=== PATIENT | female | born 1940 | race Caucasian/White ===

== ENCOUNTER → 2016-08-24 | Outpatient (CLI) | payer MEDICARE ==
[~2016-08-24] MED LIST: CALC500T36 PO; MULT1TAB8 PO; NATU400T PO
--- NOTE | 2016-08-24 09:19 | REP ---
RIGHT UPPER QUADRANT ULTRASOUND: Real-time sonographic evaluation of the right upper quadrant performed. No gallstones are seen. Focal soft tissue is seen along the posterior inner wall of the gallbladder measuring 9 x 5 mm. This could represent focal adherent sludge versus a polyp. Followup recommended. There is no pericholecystic fluid. Otherwise no gallbladder wall thickening is seen. There is no intrahepatic or extrahepatic biliary dilatation, common bile duct measuring 3 mm in diameter. Liver and pancreas demonstrate homogeneous echotexture with no gross mass. Right kidney demonstrates no hydronephrosis or nephrolithiasis with normal size at 10.2 cm in length. There is no free fluid. IMPRESSION: Focal adherent sludge versus polyp along the inner posterior wall of the gallbladder measuring 9 x 5 mm. Otherwise unremarkable. Recommend followup ultrasound in 3-6 months to re-evaluate. Signed by Peterson Cabrera MD 08/24/2016 12:42 P
== END ==
LOC: M RAD 08:05
PROVIDERS: ATTEND Surgery
DX: K81.0 Acute cholecystitis (principal)

== ENCOUNTER → 2016-11-17 | Outpatient (CLI) | payer MEDICARE ==
--- NOTE | 2016-11-17 09:54 | REP ---
RIGHT UPPER QUADRANT ULTRASOUND: Real-time sonographic evaluation of the right upper quadrant performed. Comparison made with a prior study of 08/24/2016. Along the posterior inner wall of the gallbladder is an oval polyp measuring 8 x 3 x 8 mm essentially unchanged. Another polyp in the gallbladder measures 2 x 1 x 3 mm. No gallstones are seen. There is no gallbladder wall thickening or pericholecystic fluid. There is no intrahepatic or extrahepatic biliary dilatation, common bile duct measuring 4 mm in diameter. The liver and pancreas demonstrate homogeneous echotexture with no gross mass. Right kidney demonstrates no hydronephrosis with normal size at 10.6 cm in length. IMPRESSION: Two gallbladder polyps are seen along the posterior wall of the gallbladder, larger measuring 8 X 3 x 8 mm. This is unchanged since 08/24/2016. Recommend followup ultrasound in 6 months to ensure stability. Signed by Peterson Cabrera MD 11/17/2016 10:02 A
== END ==
LOC: M RAD 08:28
PROVIDERS: ATTEND Surgery
DX: K82.4 Cholesterolosis of gallbladder (principal)

== ENCOUNTER → 2018-09-07 | Outpatient (CLI) | payer MEDICARE ==
[~2018-09-07] MED LIST changes: +CALC12504 PO; -CALC500T36 PO
--- NOTE | 2018-09-07 12:13 | REP ---
CAROTID ULTRASOUND: Real-time ultrasound evaluation and duplex Doppler interrogation of the extracranial carotid vasculature is performed. There is mild plaquing and narrowing in both carotid bulbs extending into the internal and external carotid arteries. Luminal narrowing is less than 50%. There is no evidence of hemodynamically significant stenosis of either internal carotid artery. Normal flow velocities are seen. The vertebral arteries demonstrate normal direction of flow. RIGHT LEFT Peak systolic velocity ICA 61.5 cm/s 75 cm/s End diastolic velocity ICA 24.8 cm/s 30 cm/s Peak systolic velocity CCA 72 cm/s 105 cm/s Peak systolic velocity ECA 85.5 cm/s 93.2 cm/s ICA/CCA ratio 0.85 0.71 IMPRESSION: Bilateral luminal narrowing of the internal carotid arteries less than 50%. No evidence of hemodynamically significant stenosis. Incidental note is made of bilateral thyroid cysts and nodules. Recommend formal thyroid ultrasound to further evaluate. Electronically Signed by Peterson Cabrera MD 09/07/2018 12:06 P
== END ==
LOC: M RAD 09:47
PROVIDERS: ATTEND Physician Assistant
DX: I65.23 Occlusion and stenosis of bilateral carotid arteries (principal); E04.1 Nontoxic single thyroid nodule

== ENCOUNTER → 2018-09-14 | Outpatient (CLI) | payer MEDICARE ==
--- NOTE | 2018-09-14 11:42 | REP ---
THYROID SONOGRAPHY: HISTORY: Thyroid cysts. Findings in the thyroid are noted on the carotid sonography dated September 07, 2018. FINDINGS: Thyroid isthmus is thickened at 1.0 cm. Multinodular thyroid is observed. Right lobe dimensions are 3.6 x 1.5 x 1.7 cm. The left thyroid lobe measures 3.7 x 1.4 x 2.1 cm. There are multiple thyroid cysts, cystic nodules, and solid thyroid nodules bilaterally. None of these have suspicious features by ultrasound criteria. There are two nodules in the isthmus, one measuring 1.0 and the other 1.1 cm in greatest diameter. There is a 0.7 cm solid nodule and a 1.0 cm solid nodule in the right lobe. There are several complex smaller nodules in the right lobe. There is a complex 0.8 cm nodule in the left lobe and a complex 1.0 cm nodule in the left lobe. IMPRESSION: Multinodular thyroid. Electronically Signed by Ivan Moon MD 09/14/2018 08:00 P
== END ==
LOC: M RAD 09:38
PROVIDERS: ATTEND Physician Assistant
DX: E04.1 Nontoxic single thyroid nodule (principal)

== ENCOUNTER 2019-01-14 08:52 | Inpatient (IN) | payer MEDICARE ==
[~2019-01-14] VITALS: Ht 160 cm; Wt 62.2 kg
[~2019-01-14 08:52] MED LIST changes: -CALC12504 PO; +CALC500T61 PO
[2019-01-14] MEDS: ENOXAPARIN 40 MG/0.4 ML SYRINGE (J1650) SC SCH (09:00)
[2019-01-14] MEDS ORDERED: LISI10TA4 PO (09:01)
[2019-01-14 09:27] LABS: BASO % 0.4 % (0.0-1.0); EOS # 0.1 10^3/uL (0.0-0.50); EOS % 0.5 % (0.0-3.0); HEMATOCRIT 36.2 % (36.0-47.0); HEMOGLOBIN 12.2 g/dl (12.0-15.5); LYMPH # 0.8 10^3/uL (1.5-4.5); LYMPH % 7.7 % (24.0-44.0); MEAN CORPUSCULAR HEMOGLOBIN 33.7 pg (27.0-33.0); MEAN CORPUSCULAR HGB CONC 33.7 g/dl (32.0-36.5); MONO # 0.7 10^3/uL (0.0-0.8); MONO % 6.3 % (0.0-5.0); NEUTROPHILS # 8.9 10^3/uL (1.8-7.7); NEUTROPHILS % 84.8 % (36.0-66.0); PLATELET COUNT, AUTOMATED 243 10^3/uL (150-450); RED BLOOD COUNT 3.62 10^6/uL (4.00-5.40); WHITE BLOOD COUNT 10.4 10^3/uL (4.0-10.0)
[2019-01-14] MEDS ORDERED: ONDANSETRON 4MG/2ML VIAL (J2405) IV ONE ×2 (10:00→11:45)
[2019-01-14 11:16] LABS: ALBUMIN 3.5 GM/DL (3.2-5.2); ALT/SGPT 38 U/L (12-78); BILIRUBIN,DIRECT 0.3 MG/DL (0.0-0.2); BILIRUBIN,TOTAL 0.6 MG/DL (0.2-1.0); BLOOD UREA NITROGEN 25 MG/DL (7-18); CALCIUM LEVEL 8.7 MG/DL (8.8-10.2); CARBON DIOXIDE LEVEL 26 MEQ/L (21-32); CHLORIDE LEVEL 113 MEQ/L (98-107); CREATININE FOR GFR 0.98 MG/DL (0.55-1.30); GLOMERULAR FILTRATION RATE 58.4 (>39); GLUCOSE, FASTING 108 MG/DL (70-100); POTASSIUM SERUM 4.3 MEQ/L (3.5-5.1); SODIUM LEVEL 145 MEQ/L (136-145); TOTAL PROTEIN 6.3 GM/DL (6.4-8.2)
[2019-01-14 11:17] LABS: LIPASE 31130 U/L (73-393)
[2019-01-14 11:38] LABS: CK-MB VALUE MASS 1.6 NG/ML (<3.6); CPK CREATINE PHOSPHOKINASE 148 U/L (26-192); MB/CK RELATIVE INDEX 1.08 (< OR =4); TROPONIN I < 0.02 NG/ML (< 0.10)
[2019-01-14] MEDS ORDERED: NS 1,000 ML IV SCH (11:45)
[2019-01-14] MEDS: MORPHINE 4 MG/ML 1ML VIAL/SYRINGE (J2270) IV PRN ×2 (12:20→13:41)
[2019-01-14] MEDS ORDERED: ACET-683 PO (12:58)
[2019-01-14] MEDS ORDERED: VITA-157 PO (12:58)
--- NOTE | 2019-01-14 14:20 | REP ---
REASON: History of pancreatitis. COMPARISON: 06/13/2017. Prior examination showed a 9 mm sized polyp in the gallbladder was felt to be unchanged with an older exam of 11/17/2016. The exam was otherwise unremarkable. Today's examination again shows echogenic focus of adherence of the gallbladder wall, which is essentially unchanged. Low level echoes are also seen in the gallbladder lumen consistent with sludge formation. There are no shadowing echogenic foci. The liver is unchanged and again seen to be within normal limits. The common bile duct measures between 6 and 7 mm, which is within normal limits for the patient's age. The imaged portion of the pancreas and right kidney are unchanged and again seen to be within normal limits for the patient's age. There are some likely age-related renal atrophic changes, status quo. IMPRESSION: 1. Unchanged polyp. 2. No evidence of acute disease. 3. Small amount of sludge. Electronically Signed by Buster Ratliff DO 01/14/2019 04:46 P
[2019-01-14] MEDS ORDERED: ONDANSETRON 4MG/2ML VIAL (J2405) IV PRN (14:30)
[2019-01-14] MEDS ORDERED: MORPHINE 4 MG/ML 1ML VIAL/SYRINGE (J2270) IV PRN (14:30)
[2019-01-14] MEDS ORDERED: ACETAMINOPHEN TAB 650MG DOSE (2X325MG) PO PRN (14:30)
[2019-01-14] MEDS ORDERED: NORCO, ANEXSIA 5/325MG TABLET (HYDROcodone/ACETAMINOPHEN) PO PRN (14:30)
[2019-01-14 14:44] VITALS: BP 111/57
[2019-01-14 14:44] LABS: TRIGLYCERIDES LEVEL 105 MG/DL (<150)
[2019-01-14] MEDS: LR 1,000 ML IV SCH ×4 (15:40→23:45)
--- NOTE | 2019-01-14 16:28 | HPEPDOC ---
[facility] Medical History & Physical Date of Admission Jan 14, 2019 Date of Service: Jan 14, 2019 Primary Care Physician: Liza Whiting PA-C, LAC Attending Physician: SHASHI SEAY MD History and Physical CHIEF COMPLAINT: Abdominal pain, vomiting HISTORY OF PRESENT ILLNESS: Leticia Jaime is a 78-year-old female presented to the emergency room this afternoon with sudden onset epigastric abdominal pain, nausea, and vomiting. She states she felt well this morning when she got up and she was able to eat breakfast normally. However, as she continues to go about her daily routine. She began to feel nauseous with severe epigastric pain which was sharp and stabbing and rated 10/10. She reports as the pain progressed and did wrap around to her back as well. She states she was unable to continue with her normal daily tasks and decided to come in to the emergency room. She st ates that since she has been here, she has vomited 4 times. He otherwise states she feels well with no additional complaints. She states she has never had any symptoms like this before. She does state she has had a "gallbladder attack" in 2016 which resolved without incident. She did not have a cholecystectomy at that time. Since she has been in the ED, she has received morphine for her pain with good effect and Zofran for her nausea with good effect. PAST MEDICAL HISTORY: 1. Hypertension. 2. Hx of cholecystitis episode PAST SURGICAL HISTORY: 1. Appendectomy SOCIAL HISTORY: Tobacco use: Never smoker ETOH: Denies Illicit drug use: Denies IV drug use: Denies FAMILY HISTORY: Father: Dementia, recurrent pneumonia Mother: Hypertension, [place] Siblings: sister with metastatic lung [place] Children: Healthy ALLERGIES: Please see below. REVIEW OF SYSTEMS: CONSTITUTIONAL: Endorses chills. Denies fevers, night sweats, fatigue, unexpected change in weight HEENT: Denies change in vision, change in hearing, ear pain, sore throat, runny nose CARDIOVASCULAR: Denies chest pain, palpitations, shortness of breath, edema. RESPIRATORY: Denies cough, wheezing. GASTROINTESTINAL: Endorses nausea, vomiting, abdominal pain. Denies diarrhea, blood in stool, blood in vomit GENITOURINARY: Denies dysuria, urinary frequency. SKIN: Denies new rashes or lesions. MUSCULOSKELETAL: Denies new joint pain, muscle aches. NEUROLOGICAL: Denies headaches, confusion, weakness. PSYCHIATRIC: Denies change in mood HOME MEDICATIONS: Please see below. PHYSICAL EXAMINATION: VITAL SIGNS: Temperature 98.2, pulse 85, respiratory rate, 18, blood pressure, 124/58, pulse oximetry, 99 % on room air. GENERAL APPEARANCE: Alert, comfortable, lying in bed, in no acute distress. HEENT:. PERRLA, EOMI, moist mucous membranes. CARDIOVASCULAR: Regular rate and rhythm, normal S1 and S2, no murmurs, rubs or gallops. LUNGS:. Good air entry bilaterally, clear to auscultation bilaterally. ABDOMEN: Tender to light palpation in the epigastric area, tender to deep palpation in the RUQ and LUQ. Soft, nondistended, bowel sounds present, no masses or hepatosplenomegaly appreciated. MUSCULOSKELETAL: Full ROM and 5/5 strength in 4/4 extremities. EXTREMITIES: No cyanosis or edema. Pulses 2+/4 in the radial and posterior tibial arteries. NEUROLOGICAL: Alert and oriented 3 to person, place and time, cranial nerves 212 grossly intact, no focal deficits appreciated. PSYCHIATRIC:, Normal mood and affect. LABORATORY DATA: See below. IMAGING: Gallbladder U/S 01/14: Unchanged polyp, no evidence of acute disease, small amount of sludge. No CBD dilation. MICROBIOLOGY: Please see below. ASSESSMENT: 78-year-old female presented to the emergency room this afternoon with sudden onset epigastric abdominal pain, nausea, and vomiting with an elevated lipase level, suggestive of acute pancreatitis. PLAN: 1. Acute pancreatitis. Patient with epigastric abdominal pain, nausea/vomiting and elevated lipase level. Etiology currently unknown. Patient denies alcohol use. Gallbladder ultrasound negative for gallstones, this does not rule out recent passed stone. Will also check triglyceride levels. Started on IV fluid resuscitation with LR at 250 mls/hr. Patient will be kept NPO for now. When she starts to improve and feels hungry she may have clear liquids and then progress diet as tolerated. Continue IV fluids until she has good oral intake. Continue to monitor for clinical improvement. 2. Elevated liver function tests. Will trend LFTs to make sure they are coming down 3. Hypertension. Continue home lisinopril 4. DVT prophylaxis. Lovenox Disposition: Admitted to med/surg, pending clinical improvement Vital Signs Vital Signs Date Time Temp Pulse Resp B/P (MAP) Pulse Ox O2 Delivery O2 Flow Rate FiO2 01/14/19 13:51 18 01/14/19 11:22 98.2 102 98 Room Air Laboratory Data Labs 24H Laboratory Tests 2 01/14/19 09:17: Immature Granulocyte % (Auto) 0.3, White Blood Count 10.4H, Red Blood Count 3.62L, Hemoglobin 12.2, Hematocrit 36.2, Mean Corpuscular Volume 100.0H, Mean Corpuscular Hemoglobin 33.7H, Mean Corpuscular Hemoglobin Concent 33.7, Red Cell Distribution Width 11.4L, Platelet Count 243, Neutrophils (%) (Auto) 84.8H, Lymphocytes (%) (Auto) 7.7L, Monocytes (%) (Auto) 6.3H, Eosinophils (%) (Auto) 0.5, Basophils (%) (Auto) 0.4, Neutrophils # (Auto) 8.9H, Lymphocytes # (Auto) 0.8L, Monocytes # (Auto) 0.7, Eosinophils # (Auto) 0.1, Basophils # (Auto) 0.0, Nucleated Red Blood Cells % (auto) 0.0, Anion Gap 6L, Glomerular Filtration Rate 58.4, Calcium Level 8.7L, Aspartate Amino Transf (AST/SGOT) 90H, Alanine Aminotransferase (ALT/SGPT) 38, Alkaline Phosphatase 151H, Total Bilirubin 0.6, Direct Bilirubin 0.3H, Total Creatine Kinase 148, Creatine Kinase MB 1.6, Creatine Kinase MB Relative Index 1.08, Troponin I < 0.02, Total Protein 6.3L, Albumin 3.5, Albumin/Globulin Ratio 1.25, Lipase [id number] CBC/BMP Laboratory Tests 01/14/19 09:17 Red Blood Count 3.62 L, Mean Corpuscular Volume 100.0 H, Mean Corpuscular Hemoglobin 33.7 H, Mean Corpuscular Hemoglobin Concent 33.7, Red Cell Distribution Width 11.4 L, Neutrophils (%) (Auto) 84.8 H, Lymphocytes (%) (Auto) 7.7 L, Monocytes (%) (Auto) 6.3 H, Eosinophils (%) (Auto) 0.5, Basophils (%) (Auto) 0.4, Neutrophils # (Auto) 8.9 H, Lymphocytes # (Auto) 0.8 L, Monocytes # (Auto) 0.7, Eosinophils # (Auto) 0.1, Basophils # (Auto) 0.0 Home Medications Scheduled Calcium Carbonate (Calcium Carbonate) 500 Mg Tab, 500 MG PO DAILY Lisinopril (Lisinopril) 10 Mg Tablet, 10 MG PO DAILY Multivitamin (Multi-Vitamin Daily) 1 Tab Tab, 1 TAB PO DAILY Vitamin E (Dl,Tocopheryl Acet) (Vitamin E) 400 Unit Capsule, 400 UNIT PO DAILY Scheduled PRN Acetaminophen (Acetaminophen) 500 Mg Tablet, 1,000 MG PO DAILYPRN PRN for PAIN Allergies Coded Allergies: No Known Allergies (Unverified , 01/14/19) A-FIB/CHADSVASC A-FIB History Current/History of A-Fib/PAF?: No ABEBE MACIAS PGY-1 Jan 14, 2019 15:10
--- NOTE | 2019-01-14 20:41 | ECGEPIP ---
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
[2019-01-14 22:00] VITALS: BP 110/52
[2019-01-15 06:00] VITALS: BP 118/58
[2019-01-15 07:00] LABS: HEMATOCRIT 32.9 % (36.0-47.0); HEMOGLOBIN 10.7 g/dl (12.0-15.5); MEAN CORPUSCULAR HEMOGLOBIN 34.1 pg (27.0-33.0); MEAN CORPUSCULAR HGB CONC 32.5 g/dl (32.0-36.5); MEAN CORPUSCULAR VOLUME 104.8 fl (80.0-96.0); PLATELET COUNT, AUTOMATED 182 10^3/uL (150-450); RED BLOOD COUNT 3.14 10^6/uL (4.00-5.40)
[2019-01-15 07:25] LABS: ALBUMIN 2.6 GM/DL (3.2-5.2); BILIRUBIN,TOTAL 2.2 MG/DL (0.2-1.0); CALCIUM LEVEL 8.1 MG/DL (8.8-10.2); CHOLESTEROL RISK RATIO 1.714 (<5); CREATININE FOR GFR 1.07 MG/DL (0.55-1.30); GLOMERULAR FILTRATION RATE 52.8 (>39); POTASSIUM SERUM 4.3 MEQ/L (3.5-5.1); TOTAL PROTEIN 5.5 GM/DL (6.4-8.2)
[2019-01-15] MEDS: LR 1,000 ML IV SCH ×4 (07:25→21:28)
[2019-01-15] MEDS: ENOXAPARIN 40 MG/0.4 ML SYRINGE (J1650) SC SCH ×2 (09:00→10:00)
--- NOTE | 2019-01-15 09:40 | IPNPDOC ---
Date Seen The patient was seen on 01/15/19. Progress Note SUBJECTIVE: Patient is a 78-year-old female presented to the emergency room this afternoon with sudden onset epigastric abdominal pain, nausea, and vomiting with an elevated lipase level, suggestive of acute pancreatitis. Patient reports she is feeling well this morning. She states she still has some soreness in her epigastric area of her abdomen, but otherwise she denies any anisha k pain or further abdominal pain. She denies any nausea, vomiting, diarrhea. She states she does feel like she wants to try to start eating. Denies fevers, chills, night sweats, chest pain, shortness of breath, leg swelling. OBJECTIVE: PHYSICAL EXAMINATION: VITAL SIGNS: Please see below. GENERAL: Alert, comfortable, lying in bed, in no acute distress. HEENT: PERRLA, EOMI, moist mucous membranes. CARDIOVASCULAR: Regular rate and rhythm, normal S1 and S2, no murmurs, rubs or gallops. RESPIRATORY: Good air entry bilaterally, clear to auscultation bilaterally. ABDOMINAL: Tender to deep palpation in the epigastric area, otherwise nontender along the lower and mid abdomen. Soft, nondistended, bowel sounds present, no masses or hepatosplenomegaly appreciated. EXTREMITIES: No cyanosis or edema. Pulses 2+/4 in the radial and posterior tibial arteries. NEUROLOGICAL: Alert and oriented 3 to person, place and time, cranial nerves 212 grossly intact, no focal deficits appreciated. PSYCHOLOGICAL: Normal mood and affect LABORATORY DATA, IMAGING STUDIES, MICROBIOLOGY: Please see below. IMAGING: Gallbladder U/S 01/14: Unchanged polyp, no evidence of acute disease, small amount of sludge. No CBD dilation. ASSESSMENT AND PLAN: This is a 78-year-old female presented to the emergency room this afternoon with sudden onset epigastric abdominal pain, nausea, and vomiting with an elevated lipase level, suggestive of acute pancreatitis. PROBLEMS: 1. Acute pancreatitis. Patient with epigastric abdominal pain, nausea/vomiting and elevated lipase level. Etiology currently unknown. Patient denies alcohol use. Gallbladder ultrasound negative for gallstones, this does not rule out recent passed stone. Will also check triglyceride levels. It is still possible that the etiology of her pancreatitis is a recently passed gallstone. Considering her only other significant medical event was also cholecystitis, would suggest she see a general surgeon as an outpatient to consider a cholecystectomy. Started on IV fluid resuscitation with LR at 250 mls/hr and kept NPO overnight. Start clear liquid diet for now and if she tolerates this, will continue to advance her diet. Once she has good PO intake. We will discontinue the IV fluids. 2. Elevated liver function tests. Will trend LFTs to make sure they are coming down 3. Hypertension. Continue home lisinopril 4. DVT prophylaxis. Lovenox DISPOSITION: Admitted to med/surg, pending clinical improvement VS, I&O, 24H, Fishbone Vital Signs/I&O Vital Signs Date Time Temp Pulse Resp B/P (MAP) Pulse Ox O2 Delivery O2 Flow Rate FiO2 01/15/19 06:00 98.2 86 17 118/58 (78) 96 01/14/19 11:22 Room Air I&O- Last 24 Hours up to 6 AM 01/15/19 06:00 Intake Total 1400 ml Output Total 950 ml Balance 450 ml Laboratory Data 24H LABS Laboratory Tests 2 01/15/19 06:40: Nucleated Red Blood Cells % (auto) 0.0, Anion Gap 4L, Glomerular Filtration Rate 52.8, Blood Urea Nitrogen 21H, Creatinine 1.07, Sodium Level 143, Potassium Lev el 4.3, Chloride Level 112H, Carbon Dioxide Level 27, Calcium Level 8.1L, Aspartate Amino Transf (AST/SGOT) 377H, Alanine Aminotransferase (ALT/SGPT) 398H, Alkaline Phosphatase 200H, Total Bilirubin 2.2#H, Triglycerides Level 37, LDL Cholesterol 38, Total Protein 5.5L, Albumin 2.6#L, Albumin/Globulin Ratio 0.90L, Total Cholesterol 108, Non-HDL Cholesterol (LDL + VLDL) 45, Total HDL Cholesterol 63, Cholesterol/HDL Ratio 1.714 CBC/BMP Laboratory Tests 01/15/19 06:40 Red Blood Count 3.14 L, Mean Corpuscular Volume 104.8 H, Mean Corpuscular Hemoglobin 34.1 H, Mean Corpuscular Hemoglobin Concent 32.5, Red Cell Distribution Width 11.9, Calcium Level 8.1 L, Aspartate Amino Transf (AST/SGOT) 377 H, Alanine Aminotransferase (ALT/SGPT) 398 H, Alkaline Phosphatase 200 H, Total Bilirubin 2.2 #H, Triglycerides Level 37, LDL Cholesterol 38, Total Protein 5.5 L, Albumin 2.6 #L ABEBE MACIAS PGY-1 Jan 15, 2019 09:40
[2019-01-15] MEDS: LISINOPRIL 10 MG TAB PO SCH (09:59)
[2019-01-15 14:00] VITALS: BP 120/60
[2019-01-15 22:00] VITALS: BP 124/64
[2019-01-16] MEDS: LR 1,000 ML IV SCH ×2 (01:28→05:30)
[2019-01-16 06:00] VITALS: BP 119/64
[2019-01-16 06:16] LABS: HEMATOCRIT 30.6 % (36.0-47.0); HEMOGLOBIN 10.2 g/dl (12.0-15.5); MEAN CORPUSCULAR HEMOGLOBIN 33.6 pg (27.0-33.0); MEAN CORPUSCULAR HGB CONC 33.3 g/dl (32.0-36.5); MEAN CORPUSCULAR VOLUME 100.7 fl (80.0-96.0); PLATELET COUNT, AUTOMATED 162 10^3/uL (150-450); RED BLOOD COUNT 3.04 10^6/uL (4.00-5.40); WHITE BLOOD COUNT 10.8 10^3/uL (4.0-10.0)
[2019-01-16 07:32] LABS: ALBUMIN 2.2 GM/DL (3.2-5.2); ALT/SGPT 216 U/L (12-78); BILIRUBIN,TOTAL 1.3 MG/DL (0.2-1.0); BLOOD UREA NITROGEN 13 MG/DL (7-18); CALCIUM LEVEL 8.1 MG/DL (8.8-10.2); CARBON DIOXIDE LEVEL 23 MEQ/L (21-32); CHLORIDE LEVEL 114 MEQ/L (98-107); CREATININE FOR GFR 0.85 MG/DL (0.55-1.30); GLOMERULAR FILTRATION RATE > 60.0 (>39); GLUCOSE, FASTING 50 MG/DL (70-100); POTASSIUM SERUM 3.7 MEQ/L (3.5-5.1); SODIUM LEVEL 144 MEQ/L (136-145); TOTAL PROTEIN 5.2 GM/DL (6.4-8.2)
[2019-01-16] MEDS: ENOXAPARIN 40 MG/0.4 ML SYRINGE (J1650) SC SCH (08:11)
[2019-01-16 08:12] VITALS: BP 119/64
[2019-01-16] MEDS: LISINOPRIL 10 MG TAB PO SCH (08:12)
[2019-01-16 14:00] VITALS: BP 148/60
--- NOTE | 2019-01-16 17:01 | DS.PDOC ---
Discharge Summary General Date of Admission Jan 14, 2019 at 13:24 Date of Discharge 01/16/2019 Primary Care Physician: Liza Whiting PA-C, LAC Attending Physician: SHASHI SEAY MD Discharge Summary PROCEDURES PERFORMED DURING STAY: None ADMITTING DIAGNOSES: 1. Acute pancreatitis. 2. Elevated LFTs. 3. Hypertension. DISCHARGE DIAGNOSES: 1. Acute pancreatitis. 2. Elevated LFTs, resolving. 3. Hypertension. COMPLICATIONS/CHIEF COMPLAINT: Acute Pancreatitis. HISTORY OF PRESENT ILLNESS: Leticia Jaime is a 78-year-old female presented to the emergency room this afternoon with sudden onset epigastric abdominal pain, nausea, and vomiting. She states she felt well this morning when she got up and she was able to eat breakfast normally. However, as she continues to go about her daily routine. She began to feel nauseous with severe epigastric pain which was sharp and stabbing and rated 10/10. She reports as the pain progressed and did wrap around to her back as well. She states she was unable to continue with her normal daily tasks and decided to come in to the emergency room. She states that since she has been here, she has vomited 4 times. He otherwise states she feels well with no additional complaints. She states she has never had any symptoms like this before. She does state she has had a "gallbladder attack" in 2016 which resolved without incident. She did not have a cholecystectomy at that time. Since she has been in the ED, she has received morphine for her pain with good effect and Zofran for her nausea with good effect. HOSPITAL COURSE: Patient was admitted to the hospital and started on IV fluids. The patient was found to have cholesterol levels within normal limits including triglyceride levels. When the patient was admitted, she has also found to have elevated liver function tests. These continue to trend down during her admission, and are believed to be related to the potential cause of her pancreatitis, a passed gallstone. Abdominal ultrasound of the liver and gallbladder did not show any obstructing gallstones or CBD dilation. She was kept NPO until she started to develop an appetite on the second day of her ad mission. She was then started on a clear liquid diet which she tolerated well. IV fluids were discontinued when she had good oral intake. On the third day of her admission, the patient was advanced to a regular diet and tolerated this well. On the day of discharge, the patient was found to be stable and safe for discharge. DISCHARGE MEDICATIONS: Please see below. ALLERGIES: Please see below. PHYSICAL EXAMINATION ON DISCHARGE: VITAL SIGNS: Please see below. GENERAL: Alert, comfortable, lying in bed, in no acute distress. HEENT: PERRLA, EOMI, moist mucous membranes. NECK: Supple, no lymphadenopathy CARDIOVASCULAR EXAMINATION: Regular rate and rhythm, normal S1 and S2, no murmurs, rubs or gallops. RESPIRATORY EXAMINATION: Good air entry bilaterally, clear to auscultation bilaterally. ABDOMINAL EXAMINATION: Mildly tender to palpation in the epigastric area, otherwise nontender. Soft, nondistended, bowel sounds present, no masses or hepatosplenomegaly appreciated. EXTREMITIES: No cyanosis or edema. Pulses 2+/4 in the radial and posterior tibial arteries. SKIN: [place], dry, warm, intact NEUROLOGICAL EXAMINATION: Alert and oriented 3 [address] person, place and time, cranial nerves 212 grossly intact, no focal deficits appreciated. PSYCHIATRIC EXAMINATION: Normal mood and affect. LABORATORY DATA: Please see below. IMAGING: Gallbladder U/S 01/14: Unchanged polyp, no evidence of acute disease, small amount of sludge. No CBD dilation. PROGNOSIS: Good ACTIVITY: As tolerated. DIET: As tolerated DISCHARGE PLAN: Home DISPOSITION: Home DISCHARGE INSTRUCTIONS: 1. Follow up with your PCP in 7-10 days. 2. Consider scheduling a consult with a general surgeon to discuss elective cholecystectomy. 3. Continue all your home medications. 4. If your symptoms return or your condition worsens, pelase call your PCP or return to the emergency room for further evaluation. ITEMS TO FOLLOWUP ON ON OUTPATIENT: 1. Acute pancreatitis, possibly secondary to a passed gallstone. 2. Consider elective cholecystectomy with a general surgeon 3. Elevated liver function tests improved during admission, consider follow-up labs DISCHARGE CONDITION: Stable. TIME SPENT ON DISCHARGE: Greater than 35 minutes. Vital Signs/I&Os Vital Signs Date Time Temp Pulse Resp B/P (MAP) Pulse Ox O2 Delivery O2 Flow Rate FiO2 01/16/19 14:00 98.3 76 19 148/60 (89) 97 01/14/19 11:22 Room Air I&O- Last 24 Hours up to 6 AM 01/16/19 06:00 Intake Total 6510 ml Output Total 2890 ml Balance 3620 ml Laboratory Data Labs 24H Laboratory Tests 2 01/16/19 05:45: Nucleated Red Blood Cells % (auto) 0.0, Anion Gap 7L, Glomerular Filtration Rate > 60.0, Blood Urea Nitrogen 13, Creatinine 0.85, Sodium Level 144, Potassium Level 3.7, Chloride Level 114H, Carbon Dioxide Level 23, Calcium Level 8.1L, Aspartate Amino Transf (AST/SGOT) 138H, Alanine Aminotransferase (ALT/SGPT) 216H, Alkaline Phosphatase 175H, Total Bilirubin 1.3H, Total Protein 5.2L, Albumin 2.2L, Albumin/Globulin Ratio 0.73L CBC/BMP Laboratory Tests 01/16/19 05:45 Red Blood Count 3.04 L, Mean Corpuscular Volume 100.7 H, Mean Corpuscular Hemoglobin 33.6 H, Mean Corpuscular Hemoglobin Concent 33.3, Red Cell Distribution Width 11.9, Calcium Level 8.1 L, Aspartate Amino Transf (AST/SGOT) 138 H, Alanine Aminotransferase (ALT/SGPT) 216 H, Alkaline Phosphatase 175 H, Total Bilirubin 1.3 H, Total Protein 5.2 L, Albumin 2.2 L Discharge Medications Scheduled Calcium Carbonate (Calcium Carbonate) 500 Mg Tab, 500 MG PO DAILY, (Reported) Lisinopril (Lisinopril) 10 Mg Tablet, 10 MG PO DAILY, (Reported) Multivitamin (Multi-Vitamin Daily) 1 Tab Tab, 1 TAB PO DAILY, (Reported) Vitamin E (Dl,Tocopheryl Acet) (Vitamin E) 400 Unit Capsule, 400 UNIT PO DAILY, (Reported) Scheduled PRN Acetaminophen (Acetaminophen) 500 Mg Tablet, 1,000 MG PO DAILYPRN PRN for PAIN, (Reported) Allergies Coded Allergies: No Known Allergies (Unverified , 01/14/19) ABEBE MACIAS PGY-1 Jan 16, 2019 17:01
== END 2019-01-16 16:45 | disposition home or self-care (01) | DRG 444 ==
LOC: M ED 08:52 → M ED INP 13:24 → M MSPAV 14:43
PROVIDERS: ADMIT Internal Medicine; ATTEND Internal Medicine
DX: K80.50 Calculus of bile duct without cholangitis or cholecystitis without obstruction (principal); K85.90 Acute pancreatitis without necrosis or infection, unspecified; I10 Essential (primary) hypertension; Z79.899 Other long term (current) drug therapy

== ENCOUNTER 2020-05-30 13:04 | Emergency (ER) | payer MEDICARE ==
[~2020-05-30] VITALS: Ht 157.5 cm; Wt 58.2 kg
[~2020-05-30 13:04] MED LIST changes: +ACET-683 PO; +LISI10TA4 PO; +VITA-157 PO
[2020-05-30] MEDS ORDERED: MORPHINE 4 MG/ML 1ML VIAL/SYRINGE (J2270) IV ONE (13:30)
[2020-05-30] MEDS ORDERED: NS 1,000 ML IV SCH (13:30)
[2020-05-30] MEDS ORDERED: ONDANSETRON 4MG/2ML VIAL IV ONE (13:30)
[2020-05-30 14:02] LABS: HEMATOCRIT 37.3 % (36.0-47.0); MEAN CORPUSCULAR HEMOGLOBIN 31.9 pg (27.0-33.0); MEAN CORPUSCULAR HGB CONC 32.2 g/dl (32.0-36.5); MEAN CORPUSCULAR VOLUME 99.2 fl (80.0-96.0); PLATELET COUNT, AUTOMATED 177 10^3/uL (150-450); RED BLOOD COUNT 3.76 10^6/uL (4.00-5.40); WHITE BLOOD COUNT 2.1 10^3/uL (4.0-10.0)
[2020-05-30] MEDS ORDERED: METOCLOPRAMIDE INJ 10MG/2ML VIAL (J2765 PER 1) IV ONE (14:15)
[2020-05-30 14:26] LABS: BASOPHILS 1 % (0-1); LYMPHOCYTES 9 % (16-44); NEUTROPHILS 83 % (28-66); PLATELET ESTIMATE NORMAL (NORMAL)
[2020-05-30 14:27] LABS: ANISOCYTOSIS 1+; OVALOCYTES 1+; POIKILOCYTOSIS 1+
[2020-05-30 14:28] LABS: ALBUMIN 3.2 GM/DL (3.2-5.2); ALT/SGPT 404 U/L (12-78); BILIRUBIN,DIRECT 1.9 MG/DL (0.0-0.2); BILIRUBIN,TOTAL 2.7 MG/DL (0.2-1.0); CK-MB VALUE MASS < 1.0 NG/ML (<3.6); CPK CREATINE PHOSPHOKINASE 40 U/L (26-192); LIPASE 17655 U/L (73-393); TOTAL PROTEIN 6.2 GM/DL (6.4-8.2); TROPONIN I < 0.02 NG/ML (< 0.10)
[2020-05-30] MEDS ORDERED: NS 500 ML IV ONE (14:30)
[2020-05-30] MEDS ORDERED: ISOVUE-370 76% 100ML VIAL As Ordered ONE (14:39)
--- NOTE | 2020-05-30 15:30 | REP ---
INDICATION: upper abdominal pain; r/o pancreatitis. COMPARISON: None TECHNIQUE: Axial contrast-enhanced images from the lung bases to the pubic symphysis using oral and 100 cc Isovue 370 intravenous contrast material. Coronal and sagittal reformations obtained. This CT examination was performed using the following dose reduction techniques: Automated exposure control, adjustment of mA and/or kv according to the patient's size, and the use of iterative reconstruction technique. FINDINGS: The gallbladder is distended and there is evidence for pericholecystic inflammatory stranding along with intrahepatic and extrahepatic biliary ductal dilatation. The common bile duct is dilated to 8.5 mm. Findings are compatible with acute cholecystitis. Liver, spleen, pancreas, and bilateral adrenal glands are normal. Kidneys demonstrate bilateral hypodensities most compatible with simple and complex cysts. Small and large bowel without obstruction or acute inflammatory process. Pelvis demonstrates normal bladder and age-appropriate uterus/adnexa. No pelvic fluid or ascites. No free air. No adenopathy. Atherosclerotic changes to the aorta and vasculature noted without aneurysm or dissection. Lung bases are clear. IMPRESSION: 1. Findings compatible with acute cholecystitis. 2. No further acute abdominopelvic pathology appreciated. 3. Chronic findings as noted above. <Electronically signed by Sami Boogie > 05/30/20 [id number]
[2020-05-30 17:28] VITALS: BP 111/64
--- NOTE | 2020-05-30 18:22 | ECGEPIP ---
[facility] - ED Test Date: 2020-05-30 Pat Name: DEREK GILMORE Department: Room: - Gender: Female [employer]: ELFEGO : [id number] Requested By: MARSHA BARNES Order Number: [id number] Reading MD: Yue Alicia Measurements Intervals [place] Rate: 84 P: 64 MT: 135 QRS: -4 QRSD: 70 T: 44 QT: 362 QTc: 430 Interpretive Statements SINUS RHYTHM NONSPECIFIC T-WAVE ABNORMALITY INCREASED RATE 01/14/19 Electronically Signed on 05-30-2020 18:22:16 EST by Yue Alicia
== END 2020-05-30 17:33 | disposition short-term general hospital (02) ==
LOC: M ED 13:04
DX: K81.9 Cholecystitis, unspecified (principal); K85.90 Acute pancreatitis without necrosis or infection, unspecified; I10 Essential (primary) hypertension; E78.5 Hyperlipidemia, unspecified
CPT/HCPCS: 74177; 80047; 80076; 82550; 82553; 83605; 83690; 84484; 85025; 93005; 93041; 96361; 96374; 96375; 99285; J2270; J2405; J2765; Q9967; U0002

== ENCOUNTER → 2024-08-28 | Outpatient (REF) | payer MEDICARE ==
[~2024-08-28] MED LIST changes: +LISI10TA22 PO; -LISI10TA4 PO; -VITA-157 PO; +VITAE40CA PO
[2024-08-28 17:42] LABS: BASO % 0.8 % (0.0-1.0); EOS # 0.1 10^3/uL (0.0-0.5); EOS % 1.2 % (0.0-3.0); HEMATOCRIT 36.2 % (36.0-47.0); HEMOGLOBIN 11.7 g/dl (12.0-15.5); LYMPH # 1.7 10^3/uL (1.5-5.0); LYMPH % 32.7 % (24.0-44.0); MEAN CORPUSCULAR HEMOGLOBIN 33.6 pg (27.0-33.0); MEAN CORPUSCULAR HGB CONC 32.3 g/dl (32.0-36.5); MONO # 0.5 10^3/uL (0.0-0.8); MONO % 10.7 % (2.0-8.0); NEUTROPHILS # 2.8 10^3/uL (1.5-8.5); NEUTROPHILS % 54.6 % (36.0-66.0); PLATELET COUNT, AUTOMATED 259 10^3/uL (150-450); RED BLOOD COUNT 3.48 10^6/uL (4.00-5.40); WHITE BLOOD COUNT 5.1 10^3/uL (4.0-10.0)
[2024-08-28 17:44] LABS: ALBUMIN 3.4 G/DL (3.2-5.2); ALKALINE PHOSPHATASE 103 U/L (35-104); ALT/SGPT 13 U/L (7.0-40); AST/SGOT 12 U/L (<34); BILIRUBIN,TOTAL 0.2 MG/DL (0.3-1.2); BLOOD UREA NITROGEN 23 MG/DL (9-23); CALCIUM LEVEL 9.3 MG/DL (8.3-10.6); CARBON DIOXIDE LEVEL 29 MMOL/L (20-31); CHLORIDE LEVEL 108 MMOL/L (98-107); CHOLESTEROL LEVEL 170 MG/DL (<200); CHOLESTEROL RISK RATIO 2.38 (<5); CREATININE FOR GFR 0.88 MG/DL (0.55-1.30); GLOMERULAR FILTRATION RATE > 60.0 (>32); GLUCOSE, FASTING 109 MG/DL (74-106); HDL CHOLESTEROL 71.4 MG/DL (>40); LDL CHOLESTEROL 79.4 MG/DL (<100); NON-HDL-C 98.6 MG/DL; POTASSIUM SERUM 4.1 MMOL/L (3.5-5.1); SODIUM LEVEL 144 MMOL/L (136-145); TOTAL PROTEIN 6.5 G/DL (5.7-8.2); TRIGLYCERIDES LEVEL 96 MG/DL (<150)
[2024-08-28 17:45] LABS: FREE T4 1.05 NG/DL (0.89-1.76); THYROID STIMULATING HORMONE 0.779 uIU/ML (0.55-4.78)
[2024-08-28 17:46] LABS: TOTAL 25(OH) VITAMIN D 44.2 NG/ML (20.0-100.0)
== END ==
LOC: M SFHCADAM 14:01
PROVIDERS: ATTEND Physician Assistant
DX: Z00.00 Encounter for general adult medical examination without abnormal findings (principal); I10 Essential (primary) hypertension